=== PATIENT | female | born 1980 | race Caucasian/White ===

== ENCOUNTER → 2017-09-24 08:52 | Outpatient (CLI) | payer BC, SELFPAY | PROVIDERS: Family Provider Internal Medicine; PCP Internal Medicine | DX: R00.2 Palpitations (principal) | CPT/HCPCS: 93225; 93226 ==

== ENCOUNTER 2018-03-15 13:15 | Emergency (ER) | payer OTHER, SELFPAY ==
[2018-03-15 13:16] VITALS: BP 122/78; PULSE 108; RESP 16; TEMP 37.7; O2SAT 99; BMI 23.6
--- NOTE | 2018-03-15 13:21 | CT_ITS ---
STUDY: CT ABDOMEN AND PELVIS WITHOUT CONTRAST REASON FOR EXAM: Female, 37 years old. Lower abdominal pain. Recent cardiac ablation. Fever. RADIATION DOSAGE (If Supplied By Facility): CTDIvol = ( 7.29 ) mGy, DLP = ( 384.28 ) mGycm TECHNIQUE: Transaxial images were obtained from the dome of the diaphragm to the symphysis pubis without oral contrast, and without intravenous contrast. Sagittal and coronal images were reconstructed. Individualized dose optimization techniques were used for this CT. COMPARISON: None. FINDINGS: The visualized lung bases are unremarkable. There is small pericardial effusion. There are small cysts in the liver. Normal gallbladder and extrahepatic biliary system. Normal spleen. Normal pancreas. Normal bilateral adrenal glands. Normal right kidney. Normal left kidney. Normal visualized stomach. Normal small intestine. Normal colon. The appendix is visualized and appears normal. Normal abdominal aorta. Normal inferior vena cava. Normal retroperitoneum. Normal urinary bladder. Normal visualized uterus. There is no free fluid in the abdomen or pelvis. There is a 6.8 x 6.8 x 4.2 cm right pelvic collection adjacent to the bladder consistent with hematoma, series 2 images 128/192 through 150/192. There is a small umbilical hernia containing fat. Normal osseous structures. CT/Abdomen/Pelvis without Cont IMPRESSION: Right pelvic hematoma. Results discussed with Dr. Hernandez. N.B. : The above information has been verbally conveyed by Demetrius Meza MD to Dr. Jeff Hernandez MD, on 03/15/2018 15:30:16 (ET). Electronically Signed: Demetrius Meza MD at 15:11 EST , Service support ,
--- NOTE | 2018-03-15 13:29 | ED.VISSUMM ---
- ER Visit Summary Date of Service: 03/15/18 Chief Complaint: [] Right-sided abdominal pain since Saturday recent cardiac ablation via the right groin approach History of Present Illness: The patient is a 37 F [] history of SVT, she indicates on Saturday she had a scheduled cardiac ablation at [facility] she spent the night but generally no complications she had some pain directly over the injection site to the right inguinal area but then on Saturday she developed more of an upper right lower quadrant pain above the inguinal ligament that persisted she went to the [facility] urgent care was found have a temperature of 100.2 and was sent to the emergency department, she notes some urinary frequency minimal dysuria normal bowel habits, she had no chest pain abdominal pain otherwise no numbness weakness or paresthesia the procedure site is completely unremarkable and healing per the patient there is no bruising or redness or pain associate with that site Physical Examination: [] 100 temperature blood pressure is within normal range General, no distress resting comfortably HEENT is generally unremarkable The neck is supple no adenopathy Cardiovascular, regular rate and rhythm Lungs, clear bilateral Abdomen, soft vague pain to the right lower abdomen that radiates slightly to the right back there is some mild guarding. There is a Band-Aid over the right inguinal area, there is a strong pulse there is no bruising or pain or signs of any type of bleeding complication or pseudoaneurysm her right thigh is unremarkable the distal right leg is unremarkable the back is unremarkable Extremities, no clubbing cyanosis or edema Neurologic, awake alert answering questions appropriately moving all 4 extremities Test Results: [] Emergency Department Course and Treatment: [] her complaints of the above differential is extensive screening labs are obtained CT flank IV fluids pain management Treatment Plan: [] Patient screening labs hgb 11.0, and UA are unremarkable, The CT shows a 7 x 7 cm hematoma that appears to be related to the right inguinal approach adjacent to the right bladder the appendix and other internal abdominal structures are unremarkable I explained all the above to the patient, at this time we did page the patient's regulatory affairs specialist to discuss case with them in detail the regulatory affairs specialist has yet to call back once the regulatory affairs specialist calls back we will determine disposition whether she needs to be transferred back up to [place] or if they feel it is safe to follow up as an outpatient the patient is comfortable with either plan Dr. Marcia Hendricks regulatory affairs specialist [facility] patient's physician has yet to call back at this time will await that call also we did check duplex scanning is unavailable at this time at [facility] Dr. Hendricks feels the patient would benefit from transfer to [place] will arrange for that if not will arrange for her follow-up with the office in the next few days and again Patient is comfortable with either plan Disposition: [] Pending conversation with Dr. Hendricks Impression: [] Right-sided abdominal pain, 7 x 7 cm pelvic hematoma as above recent cadiac ablation using right femoral approach This note was generated with [employer] dictation software. It may contain incorrect words, spelling, and punctuation that were not noted in review of the chart prior to signing ED Disposition - Plan for ED Patient: Disposition: Home or Assisted Living Chief Complaint: Abd Pain Instructions: Cardiac Catheterization, ED Abdominal Pain Unkn Cause, ED Cardiac Cath Post Bleed Hematom Referrals: Eusebio Espinoza MD [Primary Care Provider] -
[2018-03-15] MEDS: 0.9% Normal Saline 1,000 ML 1000 ML IV (13:34)
[2018-03-15 13:52] LABS: Absolute Lymphocyte Count 1.04 X10^3/ul (0.83-4.51); Basophil# 0.02 X10^3/uL; Basophil% 0.3 % (0-1); Eosinophil# 0.06 X10^3/uL; Eosinophils% 0.8 % (0-5); Hematocrit 33.3 % (37-47); Hemoglobin 10.8 g/dl (12.0-15.0); Lymphocyte # 1.04 X10^3/ul (4.0); Lymphocyte % 13.9 % (19-41); Mean Corp Hgb Conc 32.4 g/gl (32-36); Mean Corpuscular Hgb 29.6 pg (27.0-32.0); Mean Corpuscular Volume 91.2 fL (81-99); Mean Platelet Vol. 9.9 fl (6.2-12.0); Monocyte# 0.41 X10^3/uL; Monocyte% 5.5 % (0-10); Neutrophil # 5.95 X10^3/uL (2.7-7.7); Neutrophil % 79.2 % (47-70); Platelet Count 237 K/mm3 (150-450); RBC Distribution Width CV 12.9 % (11.6-14.6); RBC Distribution Width SD 42.8 fl (35.1-43.9); Red Blood Count 3.65 M/mm3 (4.2-5.4); White Blood Count 7.5 K/mm3 (4.4-11.0)
[2018-03-15 13:53] LABS: POSITIVE COUNT NO; POSITIVE DIFFERENTIAL NO; POSITIVE MORPHOLOGY NO
[2018-03-15 13:56] VITALS: BP 122/78; PULSE 108; RESP 17; TEMP 37.7; O2SAT 99
[2018-03-15 14:07] LABS: AST(SGOT) 9 U/L (15-37); Alanine Aminotransfer ALT/SGPT 14 U/L (13-56); Albumin, Serum 3.8 g/dL (3.2-5.0); Alkaline Phosphatase 49 U/L (45-117); Anion Gap 7 (5-15); BUN 8 mg/dL (7-18); BUN/Creat Ratio 12.3 RATIO (10-20); Bilirubin, Direct 0.11 mg/dL (0.00-0.30); Calcium,Total 8.4 mg/dL (8.5-10.1); Chloride 106 mmol/L (98-107); Creatinine, Serum 0.65 mg/dL (0.55-1.02); EST Glomerular Filtration Rate 108 mL/min (>60); Est Glom Filt Rate - Afr Amer 131 mL/min (>60); Estimated Creatinine Clearance 115.24 ml/min; Globulin 3.4 g/dL (2.2-4.2); Glucose 115 mg/dL (74-106); Lipase 108 U/L (73-393); Potassium 3.5 mmol/L (3.5-5.1); Protein, Total 7.2 g/dL (6.4-8.2); Sodium Level 139 mmol/L (136-145)
[2018-03-15 14:17] LABS: Pregnancy, Serum, hCG Quali. NEGATIVE Negative (0-9 Nonpreg)
[2018-03-15 14:25] VITALS: BP 122/78; PULSE 78; RESP 15; TEMP 37.7; O2SAT 99
[2018-03-15 14:29] LABS: Mucous, Urine 0 SEEN /hpf (<or=2+); Red Blood Cells-Urine 0 SEEN /hpf (0-5); White Blood Cells 0 SEEN /hpf (0-5)
[2018-03-15 14:32] LABS: Color, Urine Yellow (Yellow); Glucose, Dipstick Normal (Normal); Ketone-Dipstick 5 mg/dl (Negative); Leukocyte Esterase-Dipstick Negative /ul (Negative); Nitrite-Dipstick Negative (Negative); Occult Blood-Urine Negative /ul (Negative); Protein-Dipstick Negative (Negative); Specific Gravity, Urine 1.015 (1.002-1.030); Urine Bilirubin Dipstick Negative (Negative); Urine Clarity Clear (Clear); Urine Urobilinogen Normal (Normal)
[2018-03-15 14:38] LABS: Bacteria 1+ /hpf (None Seen); Squamous Epithelial Cells - UA 0-5 SEEN /hpf (5-10)
[2018-03-15 15:21] VITALS: TEMP 37.2
--- NOTE | 2018-03-15 16:14 | ED.DEP ---
ED Disposition - Plan for ED Patient: Chief Complaint: Abd Pain Instructions: ED Abdominal Pain Unkn Cause, Cardiac Catheterization, ED Cardiac Cath Post Bleed Hematom Referrals: Eusebio Espinoza MD [Primary Care Provider] -
--- NOTE | 2018-03-15 16:31 | ED.VISSUMM ---
- ER Visit Summary Date of Service: 03/15/18 This is an addendum to the previous dictation. Patient was checked out to me to discuss findings with her food and beverage server. Discussed with on-call for Dr. Hendricks. CT findings were reviewed. Recommends no heavy lifting or vigorous exercise. They will follow-up with the patient on Saturday. Patient is comfortable with this plan. Advised to return to the ED for worsening complaints. This note was generated with [employer] dictation software. It may contain incorrect words, spelling, and punctuation that were not noted in review of the chart prior to signing ED Disposition - Plan for ED Patient: Chief Complaint: Abd Pain Instructions: Cardiac Catheterization, ED Abdominal Pain Unkn Cause, ED Cardiac Cath Post Bleed Hematom Referrals: Eusebio Espinoza MD [Primary Care Provider] -
[2018-03-15 16:41] VITALS: BP 107/77; PULSE 77; RESP 12; O2SAT 100
== END 2018-03-15 16:42 | disposition home or self-care (01) ==
LOC: ED 14:23
PROVIDERS: Emergency Provider Emergency Medicine; Family Provider Internal Medicine; PCP Internal Medicine
DX: R10.9 Unspecified abdominal pain (principal); N94.89 Other specified conditions associated with female genital organs and menstrual cycle; R30.0 Dysuria; R35.0 Frequency of micturition
CPT/HCPCS: 74176; 80048; 80076; 81001; 83690; 84703; 85025; 87086; 87088; 96361; 96374; 96375; 99283; J7030; A4216; J2405